=== PATIENT | female | born 1960 | race Caucasian/White ===

== ENCOUNTER → 2018-06-06 09:29 | Outpatient (CLI) | payer OTHER, SELFPAY ==
[2018-06-06 12:25] LABS: Basophil# 0.02 X10^3/uL; Basophil% 0.4 % (0-1); Eosinophil# 0.14 X10^3/uL; Eosinophils% 2.5 % (0-5); Hematocrit 42.7 % (37-47); Lymphocyte % 30.7 % (19-41); Mean Corp Hgb Conc 32.8 g/gl (32-36); Mean Corpuscular Hgb 28.6 pg (27.0-32.0); Mean Corpuscular Volume 87.1 fL (81-99); Mean Platelet Vol. 10.5 fl (6.2-12.0); Monocyte# 0.71 X10^3/uL; Monocyte% 12.8 % (0-10); Neutrophil # 2.96 X10^3/uL (2.7-7.7); Neutrophil % 53.6 % (47-70); Platelet Count 334 K/mm3 (150-450); RBC Distribution Width CV 12.9 % (11.6-14.6); RBC Distribution Width SD 40.1 fl (35.1-43.9); White Blood Count 5.5 K/mm3 (4.4-11.0)
[2018-06-06 12:39] LABS: POSITIVE COUNT NO; POSITIVE DIFFERENTIAL NO; POSITIVE MORPHOLOGY NO
[2018-06-06 13:04] LABS: ALB/GLOB Ratio 1.1 RATIO (0.9-2.4); AST(SGOT) 14 U/L (15-37); Alanine Aminotransfer ALT/SGPT 40 U/L (13-56); Albumin, Serum 3.9 g/dL (3.2-5.0); Alkaline Phosphatase 82 U/L (45-117); Anion Gap 9 (5-15); BUN 21 mg/dL (7-18); BUN/Creat Ratio 26.3 RATIO (10-20); Calcium,Total 8.9 mg/dL (8.5-10.1); Chloride 106 mmol/L (98-107); Cholesterol 168 mg/dL (200); EST Glomerular Filtration Rate 79 mL/min (>60); Est Glom Filt Rate - Afr Amer 95 mL/min (>60); Globulin 3.5 g/dL (2.2-4.2); Glucose 110 mg/dL (74-106); High Density Lipoprotein 63 mg/dL; Potassium 4.1 mmol/L (3.5-5.1); Protein, Total 7.4 g/dL (6.4-8.2); Sodium Level 141 mmol/L (136-145); T4 Total, Thyroxin 10.4 ug/dL (4.8-13.9); Thyroid Stim Hormone (TSH) 2.26 uIU/mL (0.358-3.74); Triglycerides 89 mg/dL; Very Low Density Lipoprotein 18 mg/dL (5-40)
== END ==
PROVIDERS: Family Provider Internal Medicine; PCP Internal Medicine; Referring Provider Internal Medicine; Visit Provider Internal Medicine
DX: I10 Essential (primary) hypertension (principal); E78.5 Hyperlipidemia, unspecified; E03.9 Hypothyroidism, unspecified
CPT/HCPCS: 36415; 80053; 80061; 84436; 84443; 85025

== ENCOUNTER → 2018-07-04 13:31 | Outpatient (CLI) | payer OTHER, SELFPAY ==
[2018-05-23 10:53] VITALS: BMI 30.4
--- NOTE | 2018-07-04 13:35 | BI_ITS ---
MAMMOGRAPHY - BILATERAL SCREENING REASON FOR EXAM: Female, 57 years old. Routine annual screening examination. PERTINENT HISTORY: Grandmother with breast cancer. Aunt with breast cancer. TECHNIQUE: Digital bilateral breast fredis (3D mammographic acquisition) in the CC and MLO projections. 2-D mediolateral oblique (MLO) and craniocaudad (CC) views of both breasts were obtained. CAD: Full Field Digital Mammography with Computer Added Detection was performed. COMPARISON: Comparison is made with prior study dated September 13, 2016 and August 03, 2014. FINDINGS: Breast Composition: The breasts are heterogeneously dense, which may obscure small masses. There are no dominant masses or suspicious calcifications. No other significant abnormalities are identified. There has been no significant change since the prior study. BI/SCREENING MAMM (CAD), BILAT IMPRESSION: Stable bilateral screening mammogram. Yearly follow-up mammogram recommended. (A) ASSESSMENT CATEGORY: BIRADS Category 1: Negative. A letter regarding these results will be sent to the patient by the facility within 30 days. Approximately 10% of breast cancers are not detected by mammography. A normal mammogram should not delay biopsy of a clinically suspicious abnormality. [id number] Electronically Signed: Jesus Villela MD at 15:05 EST Tel [phone], Service support ,
--- OUTSIDE RECORDS SUMMARY | 2018-08-29 12:56 | XMS RPT_ITS ---
:1960 Author Organization OH[facility] Care Team Providers Name Role Phone Ines Mulligan Attending Unavailable Harvey Mulliganongbe Referring Unavailable Ines Mulligan Attending Unavailable Harvey Mulliganongbe Referring Unavailable Oleghe, Efewongbe Primary Care Unavailable Oleghe, Efewongbe Attending Unavailable CHER YEN Primary Care Unavailable Tony, Rayo LAB ENGINEER-C Attending Unavailable Oleghe, Efewongbe Referring Unavailable TonyRayo LAB ENGINEER-C Attending Unavailable Tony, Rayo LAB ENGINEER-C Referring Unavailable Oleghe, Efewongbe Primary Care Unavailable Tony, Rayo LAB ENGINEER-C Attending Unavailable Oleghe, Efewongbe Primary Care Unavailable Tony, Rayo LAB ENGINEER-C Referring Unavailable PROBLEMS PROBLEMS DATE TYPE CONDITION / CODE ATTENDING STATUS SOURCE 07/09/2018 Unknown M25.512 - Pain in Tony, Rayo Active [place] left shoulder / [facility] M25.512(ICD-10) Hospital Repository 07/09/2018 Unknown M79.674 - Pain in Tony, Rayo Active [place] right toe(s) / [facility] M79.674(ICD-10) Hospital Repository 05/23/2018 Unknown I10 - Essential Oleghe, Active [place] (primary) [facility] hypertension / Hospital I10(ICD-10) Repository 05/23/2018 Unknown E78.5 - Oleghe, Active [place] Hyperlipidemia, [facility] unspecified / Hospital E78.5(ICD-10) Repository 05/23/2018 Unknown E03.9 - Oleghe, Active [place] Hypothyroidism, [facility] unspecified / Hospital E03.9(ICD-10) Repository 05/23/2018 Unknown Z12.31 - Encounter Oleghe, Active [place] for screening [facility] mammogram for Hospital malignant neoplasm Repository of breast / Z12.31(ICD-10) 05/23/2018 Unknown G47.10 - Oleghe, Active [place] Hypersomnia, [facility] unspecified / Hospital G47.10(ICD-10) Repository 05/23/2018 Unknown Z23 - Encounter Oleghe, Active [place] for immunization / [facility] Z23(ICD-10) Hospital Repository PROCEDURES PROCEDURES No Procedure Records FoundRESULTS RESULTS INTERNAL MEDICINE Observed: 07/11/2018 Status: F Source: [place] OFFICE VISIT 9:01 AM [facility] REPOSITORY [facility] [address] [place] [address] [place] [address] OFFICE VISIT Date of Service: 07/09/18 MR#: [id number] Acct: [id number] Name: SAQIB ANTOINE Rep #: [id number] : 1960 Provider: Rayo Tony NP Age/Sex: 57/F Location: [facility] Status: Signed Intake Vital Signs07/09/18 Body Mass Index (BMI) 30.4 07/09/18 Height 5 ft 5 in Intake Visit Reasons: gout in foot, and shoulder pain Chief Complaint: Rt foot pain, and left shoulder pain Is patient in pain?: Yes (left shoulder, worse with ROM) Pain scale (1-10): 3 Allergies wool Allergy (Severe, Verified 05/23/18 10:29) Hives codeine Allergy (Verified 02/22/14 11:30) Unknown Medications Albuterol Inhaler [Ventolin Hfa] 2 puff INHALATION Q4H PRN PRN 05/04/14 [History Confirmed 05/23/18] Estradiol [Estrace] 1 mg PO DAILY 05/04/14 [History Confirmed 05/04/14] Meclizine HCl [Antivert] 12.5 mg PO DAILY PRN PRN 05/04/14 [History Confirmed 05/23/18] Montelukast [Singulair] 10 mg PO DAILY 05/04/14 [History Confirmed 05/23/18] Omeprazole [Prilosec] 40 mg PO BID 05/04/14 [History Confirmed 05/23/18] atorvastatin 20 mg tablet 20 mg PO DAILY 05/23/18 [History Confirmed 05/23/18] duloxetine 60 mg capsule,delayed release 60 mg PO DAILY 05/23/18 [History Confirmed 05/23/18] fluticasone 100 mcg-vilanterol 25 mcg/dose powder for inhalation 1 inh INHALATION DAILY 05/23/18 [History Confirmed 05/23/18] fluticasone 50 mcg/actuation nasal spray,suspension 1 spray INTRANASAL DAILY 05/23/18 [History Confirmed 05/23/18] levothyroxine 125 mcg capsule 62.5 mcg PO DAILY cap 05/23/18 [History Confirmed 05/23/18] metoclopramide 10 mg tablet 10 mg PO DAILY PRN tab 05/23/18 [History Confirmed 05/23/18] tizanidine 4 mg tablet 2 mg PO Q8H tab 05/23/18 [History Confirmed 05/23/18] allopurinol 100 mg tablet 100 mg PO DAILY #30 tab 07/09/18 [Rx Confirmed 07/09/18] cetirizine 10 mg tablet 10 mg PO DAILY PRN #90 tab 07/09/18 [Rx Confirmed 07/09/18] naproxen sodium 550 mg tablet 550 mg PO BID PRN 07/09/18 [History Confirmed 07/09/18] prednisone 20 mg tablet 40 mg PO QDAY #10 tab 07/09/18 [Rx Confirmed 07/09/18] Post menopausal: Yes PFSH Medical History Depression (Chronic) History of vitamin D deficiency (Acute) GERD (gastroesophageal reflux disease) (Chronic) History of pneumonia (Acute) Hyperlipemia (Chronic) Hypertension (Chronic) Asthma (Chronic) Osteoarthritis (Chronic) Seasonal allergies (Chronic) Surgical History History of back surgery (Acute) History of cardiac radiofrequency ablation (Acute) History of hysterectomy (Acute) History of loop electrical excision procedure (LEEP) (Acute) History of orthopedic surgery (Acute) History of tubal ligation (Acute) Hx of fusion of cervical spine (Acute) Normal colonoscopy (Acute) S/P LASIK surgery of both eyes (Acute) Family History Mother Cancer cervical, ovarian Hyperlipemia Father Heart disease Myocardial infarction, Onset Age: 72 Hyperlipemia CVA (cerebral vascular accident) Diabetes Sister Alcoholism Social History Smoking Status: Never smoker alcohol intake: current alcohol intake frequency: a few times a month Alcohol type: beer substance use type: does not use what type of physical activity do you participate in: walking frequency: 1-2 times per week HPI HPI Chief Complaint: Rt foot pain, and left shoulder pain Details: SAQIB ANTOINE, is a 57 F who presents to the office today for complaints of right foot pain and left shoulder pain. The patient has a past medical history as listed above. The patient presents today with complaints of pain to the base of her right great toe. She states this pain has been going on for over 6 months intermittently. It will flareup become red, swollen and painful, is concerned for gout. Today it is the worst the pain has been. Naproxen helps for the pain, but she does not take routinely. She denies any other aggravating or alleviating factors. The patient has a history of a right rotator cuff tear, she presents today with ongoing left shoulder pain that she compares to the pain of her right rotator cuff tear. She states she has had mild pain in her left shoulder for years but over the last few weeks the pain has become more intense. She describes it as a constant ache that is made worse with movement and lifting. She does not remember a specific injury to this area. She has been taking naproxen and Tylenol for the pain that has been mildly effective. She denies any other aggravating or alleviating factors. Denies any numbness, tingling, or weakness to the affected extremity. The patient otherwise denies any fever, chills, nausea, vomiting, shortness of breath, chest pain or pressure, palpitations, orthopnea, lower extremity edema, syncope or presyncopal episodes. ROS Const Constitutional: No weight change, body ache, chills, fatigue, sleep problems, fever(s), change in appetite, snoring, weakness, frequent falls, headache(s) or excessive sweating Eyes Eyes: No change in vision, eye pain, light sensitivity or blurry vision ENT ENT: No headache(s), abnormal hearing, ear pain, tinnitus, nasal congestion, sore throat or neck pain Resp Respiratory: No snoring, cough, shortness of breath or wheezing Cardio Cardiology: No excessive sweating, chest pain at rest, chest pain with exertion, shortness of breath, dyspnea on exertion, palpitations, orthopnea or lightheadedness Gastro GI: No abdominal pain, change in bowel habits, constipation, diarrhea, vomiting, nausea/dyspepsia or cramping Genitourinary-Female: No burning urination, painful urination, urinary incontinence, urinary frequency, abnormal vaginal bleeding, pelvic pain or other Musc Musculoskeletal: Positive for joint pain (right foot), numbness (in left arm intermittant), tingling and other (left shoulder pain); no neck pain, abnormal walking, back pain or limited range of motion Skin Skin: No redness, dry skin, itching, lesions, wounds or rash Neuro Neurology: Positive for numbness (in left arm intermittant) and tingling; no weakness, frequent falls, headache(s), abnormal hearing, abnormal walking, abnormal speech, dizziness or memory loss Psych Psychiatric: No change in appetite, No memory loss, No anxiety, No depression, No Thoughts of harming yourself/Others Endo Endocrine: No fatigue, excessive sweating, cold intolerance, increased thirst/drinking, heat intolerance, flushing or increased hunger Aller/Imm Allergy/Immunologic: Positive for seasonal allergy symptoms; no wheezing, itchy eyes or hives John/Lymp Hematologic/Lymphatic: No easy bleeding, easy bruising or enlarged lymph nodes Exam Const General: cooperative, comfortable, no acute distress Nutritional Appearance: average body habitus, well nourished Orientation: alert, oriented x3 Limitations: mental status not altered Eyes General: appearance normal, both eyes and all related structures Resp Effort AND Inspection: normal respiratory effort, able to speak in complete sentences, normal respiratory pattern, symmetric chest movement, no audible wheezes, no cough Auscultation: Bilateral: Clear to Auscultation Cardio Palpation: normal PMI Rate: regular rate Heart Sounds: S1 normal, S2 normal, normal S1 and S2, no click, no gallops, no murmurs, no rubs Musc Other: Left shoulder tenderness over the anterior surface and limited range of motion due to pain, negative empty can, drop arm and rodriguez test Right foot first MTP joint erythema, edema, warmth and tenderness, suspicious for gout Skin General: no rashes or lesions noted, elasticity normal, turgor normal Lesions: no lesions Rashes: no rashes Neuro General: alert, awake, oriented x3, CN's II-XI intact bilaterally Speech: speech normal Gait: normal gait Motor: muscle tone normal throughout Extrem General: normal to inspection, normal gait, no edema, no pedal edema Psych Appearance: grossly normal Mental Status: mental status grossly normal Affect: normal affect Attitude: cooperative Thought Process: normal Assessment AND Plan Problems 1. Gout M10.9 2. Left shoulder pain M25.512 Plan Will obtain x-ray of right great toe of right foot and left shoulder. Will obtain uric acid level. as her symptoms are consistent wth gout. Will start patient on prednisone burst. Referral to physical therapy for shoulder pain. Patient to start allopurinol in 3 weeks as per her history she has had multiple flareups of her probable gout in the right great toe. Patient educated on medication side effects. Patient educated on dietary restrictions including red meat and alcohol. Patient educated on signs and symptoms that would warrant emergency medical care. Patient to f/u in 4-6 weeks or sooner if needed. This note was generated with Weblioation software. It may contain incorrect words, spelling, and punctuation that were not noted in checking the note before signing. Orders Orders: Referrals: Medications New: Plan Detail Follow Up 4-6 weeks or sooner if needed Coding Level of Care Code Off vis,est,level 3 Diagnoses Gout M10.9 Left shoulder pain M25.512 07/11/18 0901 <Electronically signed by Rayo JEFFERS> Date Rayo JEFFERS Cosigner Signature: Date (if applicable) CC: SHOULDER MIN 2 VIEWS Observed: 07/09/2018 Status: F Source: [place] 11:35 AM [facility] REPOSITORY [facility] Imaging Services [address] [place] [id number] Shoulder min 2 Views MR#: [id number] Acct: [id number] Name: SAQIB ANTOINE Rep #: [id number] : 1960 F 57 From: Rogelio Lombardo MD PCP: Ines Mulligan MD Status: REG CLI Study: Shoulder min 2 Views Date of Exam: 07/09/18 Exam# [id number] Ordering Dr: Rayo Tony STUDY: X-RAY - LEFT SHOULDER REASON FOR EXAM: Female, 57 years old. Pain TECHNIQUE: 4 view(s) of the shoulder. COMPARISON: None. FINDINGS: Normal glenohumeral articulation. Normal acromioclavicular joint. Normal acromion. Normal humeral head and visualized proximal humerus. The soft tissue structures are unremarkable. There is no demonstrated fracture. Normal visualized pulmonary apex. RAD/Shoulder min 2 Views IMPRESSION: Normal x-ray examination of the shoulder. Electronically Signed: Rogelio Lombardo MD at 17:55 EST , Service support , CC: Ines Mulligan MD; Rayo Tony NP Disc Pad Grinder: Signed TOE(S) MIN 2 VIEWS Observed: 07/09/2018 Status: F Source: [place] 11:35 AM [facility] REPOSITORY [facility] Imaging Services [address] [place] [address] Toe(s) Min 2 Views MR#: [id number] Acct: [id number] Name: SAQIB ANTOINE Rep #: [id number] : 1960 F 57 From: Billy Vidal PCP: Ines Mulligan MD Status: REG CLI Study: Toe(s) Min 2 Views Date of Exam: 07/09/18 Exam# [id number] Ordering Dr: Rayo Tony LAB ENGINEER-C STUDY: X-RAY RIGHT FOOT, FIRST TOE REASON FOR EXAM: Female, 57 years old. Pain TECHNIQUE: 3 view(s) of the toe were obtained. COMPARISON: None. FINDINGS: Normal visualized metatarsus. There is arthrosis of the metatarsophalangeal (M.T.P.) joint. Normal interphalangeal joints. Normal phalanges and interphalangeal joints. There is no demonstrated fracture. There is soft tissue swelling of the first digit. 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 There are NO fractures or malalignments. There is soft tissue swelling of the first digit. Electronically Signed: Billy Vidal MD at 0:26 EST , Service support , CC: Ines Mulligan MD; Rayo Tony NP Disc Pad Grinder: Signed URIC ACID Collected: 07/09/2018 Status: F Source: [place] 11:27 AM [facility] REPOSITORY TYPE CODE TESTS RESULT OUT OF RANGE REFERENCE UNITS LAB L501.1400 2.6-6.0 mg/dL Normal URIC 4.3 Result Comment: The drugs N-Acetylcysteine and Metamizole may falsely depress this assay. Performed By: #### L501.1400 #### [facility] [address] [facility] [place], [address] SCREENING MAMM (CAD), Observed: 07/04/2018 Status: F Source: [place] BIL 1:35 PM [facility] REPOSITORY [facility] Imaging Services [address] [place] [address] SCREENING MAMM (CAD), BILAT MR#: [id number] Acct: [id number] Name: SAQIB ANTOINE Rep #: [id number] : 1960 F 57 From: Jesus Villela MD PCP: Ines Mulligan MD Status: REG CLI Study: SCREENING MAMM (CAD), BIL Date of Exam: 07/04/18 Exam# [id number] Ordering Dr: Ines Mulligan MD MAMMOGRAPHY - BILATERAL SCREENING REASON FOR EXAM: Female, 57 years old. Routine annual screening examination. PERTINENT HISTORY: Grandmother with breast cancer. Aunt with breast cancer. TECHNIQUE: Digital bilateral breast fredis (3D mammographic acquisition) in the CC and MLO projections. 2-D mediolateral oblique (MLO) and craniocaudad (CC) views of both breasts were obtained. CAD: Full Field Digital Mammography with Computer Added Detection was performed. COMPARISON: Comparison is made with prior study dated September 13, 2016 and August 03, 2014. FINDINGS: Breast Composition: The breasts are heterogeneously dense, which may obscure small masses. There are no dominant masses or suspicious calcifications. No other significant abnormalities are identified. There has been no significant change since the prior study. BI/SCREENING MAMM (CAD), BILAT IMPRESSION: Stable bilateral screening mammogram. Yearly follow-up mammogram recommended. (A) ASSESSMENT CATEGORY: BIRADS Category 1: Negative. A letter regarding these results will be sent to the patient by the facility within 30 days. Approximately 10% of breast cancers are not detected by mammography. A normal mammogram should not delay biopsy of a clinically suspicious abnormality. [id number] Electronically Signed: Jesus Villela MD at 15:05 EST Tel [phone], Service support , CC: Ines Mulligan MD Disc Pad Grinder: Signed CBC W/DIFF, AUTOMATED Collected: 06/06/2018 Status: F Source: [place] 9:39 AM [facility] REPOSITORY TYPE CODE TESTS RESULT OUT OF RANGE REFERENCE UNITS LAB L100.1000 4.4-11.0 K/mm3 Normal WBC 5.5 LAB L100.1200 4.2-5.4 M/mm3 Normal RBC 4.90 LAB L100.1300 12.0-15.0 g/dl Normal HGB 14.0 LAB L100.1400 37-47 % Normal HCT 42.7 LAB L100.1500 81-99 fL Normal MCV 87.1 LAB L100.1600 27.0-32.0 pg Normal MCH 28.6 LAB L100.1700 32-36 g/gl Normal MCHC 32.8 LAB L100.1810 11.6-14.6 % Normal RDW CV 12.9 LAB L100.1820 35.1-43.9 fl Normal RDW SD 40.1 LAB L100.1900 150-450 K/mm3 Normal PLT 334 LAB L100.2000 6.2-12.0 fl Normal MPV 10.5 LAB L100.2100 47-70 % Normal NEUT% 53.6 LAB L100.2200 19-41 % Normal LY% 30.7 LAB L100.2300 0-10 % High MONO% 12.8 LAB L100.2400 0-5 % Normal EO% 2.5 LAB L100.2500 0-1 % Normal BASO% 0.4 LAB L100.2550 0.0-0.9 % Normal IM GRAN % 0.000 Result Comment: IG% - Immature Granulocytes (promyelocytes, myelocytes and metamyelocytes) > 1% indicates that a LEFT SHIFT is Present. LAB L100.2620 2.0-7.7 X10 3/uL Normal Absolute Neut 3.0 LAB L100.2720 0.83-4.51 X10 3/ul Normal Absolute Lymph 1.70 Performed By: #### L100.0100 #### [facility] [address] [place], [address] COMPREHENSIVE METABOLIC Collected: 06/06/2018 Status: F Source: [facility] 9:39 AM [facility] REPOSITORY Order Comment: Comments: Fasting Comments: Fasting Comments: Fasting TYPE CODE TESTS RESULT OUT OF RANGE REFERENCE UNITS LAB L501.0100 74-106 mg/dL High GLU 110 Result Comment: Fasting Glucose result from 100 to 125 mg/dL suggests IMPAIRED HOMEOSTASIS per A.D.A. criteria. Please note revised GLUCOSE reference range effective 2017. LAB L501.1000 7-18 mg/dL High BUN 21 LAB L501.1100 0.55-1.02 mg/dL Normal CREAT,SERUM 0.80 Result Comment: The validity of the calculated GFR AND GFRAA in patients over 70 years has not been determined. Clinical correlation is essential. LAB L501.1110 >60 mL/min Normal EST GFR 79 Result Comment: Non- GFR Calc LAB L501.1115 >60 mL/min Normal EST GFR - AA 95 Result Comment: GFR Calc LAB L501.1300 10-20 RATIO High BUN/CRE 26.3 LAB L501.1500 6.4-8.2 g/dL T Normal PROT 7.4 LAB L501.1800 3.2-5.0 g/dL Normal ALB 3.9 LAB L501.1950 2.2-4.2 g/dL Normal GLOB 3.5 LAB L501.2000 0.9-2.4 RATIO Normal A/G 1.1 LAB L501.2200 8.5-10.1 mg/dL CA Normal 8.9 LAB L501.4100 15-37 U/L Low AST 14 LAB L501.4305 45-117 U/L Normal ALK P 82 LAB L501.4405 13-56 U/L Normal ALT 40 LAB L501.4600 0.20-1.00 mg/dL T Normal BILI 0.40 LAB L501.5300 136-145 mmol/L NA Normal 141 LAB L501.5600 3.5-5.1 mmol/L K Normal 4.1 LAB L501.5900 98-107 mmol/L CL Normal 106 LAB L501.6100 21.0-32.0 mmol/L Normal CO2 26.0 LAB L501.6200 5-15 Normal GAP 9 Performed By: #### L500.4050, L500.4100, L501.9310, L501.9520 #### [facility] [address] [place], [address] LIPID PROFILE Collected: 06/06/2018 Status: F Source: [place] 9:39 AM [facility] REPOSITORY Order Comment: Comments: Fasting Comments: Fasting Comments: Fasting TYPE CODE TESTS RESULT OUT OF RANGE REFERENCE UNITS LAB L501.4900 200 mg/dL Normal CHOL 168 Result Comment: <200 mg/dL Desirable 200-240 mg/dL Borderline >240 mg/dL High Risk LAB L501.5000 mg/dL Normal TRIG 89 Result Comment: The drugs N-Acetylcysteine and Metamizole may falsely depress this assay. Serum Triglycerides Reference Interval Normal <150 mg/dL Borderline high 150 - 199 mg/dL High 200 - 499 mg/dL Very High > or = 500 mg/dL LAB L501.6400 mg/dL Normal HDL 63 Result Comment: The drugs N-Acetylcysteine and Metamizole may falsely depress this assay. Reference Range HDL <40 mg/dL Low HDL Cholesterol HDL >or= 60 mg/dL High HDL Cholesterol LAB L501.6500 0-130 mg/dL Normal LDL 87 LAB L501.6600 5-40 mg/dL Normal VLDL 18 Performed By: #### L500.4050, L500.4100, L501.9310, L501.9520 #### [facility] [address] [place], [address] T4 TOTAL, THYROXIN Collected: 06/06/2018 Status: F Source: [place] 9:39 AM [facility] REPOSITORY Order Comment: Comments: Fasting Comments: Fasting Comments: Fasting TYPE CODE TESTS RESULT OUT OF RANGE REFERENCE UNITS LAB L501.9310 4.8-13.9 ug/dL T4 Normal THYROXIN 10.4 Performed By: #### L500.4050, L500.4100, L501.9310, L501.9520 #### [facility] [address] [place], [address] THYROID STIM HORMONE Collected: 06/06/2018 Status: F Source: [place] ([facility]) 9:39 AM [facility] REPOSITORY Order Comment: Comments: Fasting Comments: Fasting Comments: Fasting TYPE CODE TESTS RESULT OUT OF RANGE REFERENCE UNITS LAB L501.9520 0.358-3.74 uIU/mL Normal TSH 2.26 Performed By: #### L500.4050, L500.4100, L501.9310, L501.9520 #### [place] [facility] [address] [place], [address] INTERNAL MEDICINE Observed: 05/27/2018 Status: F Source: [place] OFFICE VISIT 8:13 AM [facility] REPOSITORY [facility] [address] [place] [address] [place] [address] OFFICE VISIT Date of Service: 05/23/18 MR#: [id number] Acct: [id number] Name: SAQIB ANTOINE Rep #: [id number] : 1960 Provider: Ines Mulligan MD Age/Sex: 57/F Location: [facility] Status: Signed Intake Vital Signs05/23/18 Height 5 ft 5 in Intake Visit Reasons: EST PCP Chief Complaint: establish care Is patient in pain?: No Allergies wool Allergy (Severe, Verified 05/23/18 10:29) Hives codeine Allergy (Verified 02/22/14 11:30) Unknown Medications Albuterol Inhaler [Ventolin Hfa] 2 puff INHALATION Q4H PRN PRN 05/04/14 [History Confirmed 05/23/18] Estradiol [Estrace] 1 mg PO DAILY 05/04/14 [History Confirmed 05/04/14] Meclizine HCl [Antivert] 12.5 mg PO DAILY PRN PRN 05/04/14 [History Confirmed 05/23/18] Montelukast [Singulair] 10 mg PO DAILY 05/04/14 [History Confirmed 05/23/18] Omeprazole [Prilosec] 40 mg PO BID 05/04/14 [History Confirmed 05/23/18] atorvastatin 20 mg tablet 20 mg PO DAILY 05/23/18 [History Confirmed 05/23/18] duloxetine 60 mg capsule,delayed release 60 mg PO DAILY 05/23/18 [History Confirmed 05/23/18] fluticasone 100 mcg-vilanterol 25 mcg/dose powder for inhalation 1 inh INHALATION DAILY 05/23/18 [History Confirmed 05/23/18] fluticasone 50 mcg/actuation nasal spray,suspension 1 spray INTRANASAL DAILY 05/23/18 [History Confirmed 05/23/18] levothyroxine 125 mcg capsule 62.5 mcg PO DAILY cap 05/23/18 [History Confirmed 05/23/18] metoclopramide 10 mg tablet 10 mg PO DAILY PRN tab 05/23/18 [History Confirmed 05/23/18] tizanidine 4 mg tablet 2 mg PO Q8H tab 05/23/18 [History Confirmed 05/23/18] Post menopausal: Yes PFSH Medical History Depression (Chronic) History of vitamin D deficiency (Acute) GERD (gastroesophageal reflux disease) (Chronic) History of pneumonia (Acute) Hyperlipemia (Chronic) Hypertension (Chronic) Asthma (Chronic) Osteoarthritis (Chronic) Seasonal allergies (Chronic) Surgical History History of back surgery (Acute) History of cardiac radiofrequency ablation (Acute) History of hysterectomy (Acute) History of loop electrical excision procedure (LEEP) (Acute) History of orthopedic surgery (Acute) History of tubal ligation (Acute) Hx of fusion of cervical spine (Acute) Normal colonoscopy (Acute) S/P LASIK surgery of both eyes (Acute) Family History Mother Cancer cervical, ovarian Hyperlipemia Father Heart disease Myocardial infarction, Onset Age: 72 Hyperlipemia CVA (cerebral vascular accident) Diabetes Sister Alcoholism Social History Smoking Status: Never smoker alcohol intake: current alcohol intake frequency: a few times a month Alcohol type: beer substance use type: does not use what type of physical activity do you participate in: walking frequency: 1-2 times per week HPI HPI Chief Complaint: establish care Details: SAQIB ANTOINE, is a 57yo F who presents to the office today establish care. She has past medical history as stated above. Most of her chronic medical conditions are stable. She reports a history of hypertension which for the most part is lifestyle controlled. Appears elevated in office today, she states that during her doctor's visits, pressure elevated. She does not check it routinely at home. She however is concerned about hypersomnolence and increased snoring which has been ongoing for several years. She has been told of the possibility of sleep apnea but has not had a sleep study done. There is a positive history of fatigue. ROS Const Constitutional: No body ache, chills, headache(s), weakness or fever(s) Eyes Eyes: No blurry vision, change in vision, eye pain or discharge ENT ENT: No headache(s), abnormal hearing, ear pain, ear pressure, tinnitus, dizziness/vertigo or balance problems Resp Respiratory: No cough, shortness of breath or wheezing Cardio Cardiology: No chest pain at rest, shortness of breath, dyspnea on exertion or palpitations Gastro GI: No abdominal pain or bloating Musc Musculoskeletal: Positive for back pain and joint pain; no abnormal walking Neuro Neurology: No headache(s), weakness, abnormal hearing, behavioral changes or abnormal walking Psych Psychiatric: No anxiety, No behavioral changes Endo Endocrine: No change in body appearance or cold intolerance Aller/Imm Allergy/Immunologic: No wheezing John/Lymp Hematologic/Lymphatic: No easy bleeding or enlarged lymph nodes Exam Const General: cooperative, no acute distress Orientation: alert, awake, oriented x3 HENMT Head: atraumatic, normocephalic, normal to inspection Ears: hearing grossly normal bilaterally Resp Effort AND Inspection: normal respiratory effort, able to speak in complete sentences Auscultation: Bilateral: Clear to Auscultation Cardio Rate: regular rate Rhythm: regular rhythm Heart Sounds: S1 normal, S2 normal GI Palpation: soft, no hepatosplenomegaly Neuro General: alert, awake, oriented x3, moves all extremities, CN's II-XI intact bilaterally Extrem General: no clubbing, cyanosis or edema Psych Appearance: grossly normal Mental Status: mental status grossly normal Mood: congruent mood Affect: normal affect Office Meds Flucelvax Quad 7460-4410 (PF) Performing Provider: Ines Mulligan MD Administered by: Lizzy Merida on 05/23/18 11:40 Dose Route Admin Location Lot Number Expiration Date NDC [employer] Supervisor 60 mcg IM right deltoid [id number] 02/01/19 [id number] [place]. Assessment AND Plan 1. Hypertension I10 Plan Mildly elevated during this visit. Patient however reports elevated blood pressure readings during doctor's appointments. She does however state that she does not check her blood pressures at home. Advised to keep a blood pressure log. Lifestyle and dietary modifications discussed. Follow-up with log in 3 months. Orders Orders: 2. Hypersomnolence G47.10 Plan Ongoing for several years and said to be worsening. Also reports loud snoring. Sleep study ordered. Will follow. Orders Orders: 3. Hyperlipemia E78.5 Plan Currently on Lipitor. She reports compliance. Lipid profile ordered. Follow-up with results. Orders Orders: 4. Healthcare maintenance Z00.00 Plan Flu shot given. Mammogram ordered. Last bone density scan was about 4 years ago and this was within normal. Unsure if she if due for colonoscopy, she was asked to call her GI's office. This note was generated with [employer] dictation software. It may contain incorrect words, spelling, and punctuation that were not noted in checking the note before signing. Plan Detail Other Orders Orders: Other Medications Discontinued: Flucelvax Quad 3024-6991 (PF) (flu vac qs 2018(4 yr60 mcg (0.5 mL) IM ONCE 1 mL 0RF NS Z23 up)CD(PF)) Discontinued Reason: Office Medicat ion has been Documented as given Coding Level of Care Code Off vis,new,level 4 Diagnoses Hypertension I10 Hypersomnolence G47.10 Hyperlipemia E78.5 Healthcare maintenance Z00.00 05/27/18 0813 <Electronically signed by Ines Mulligan MD> Date Ines Mulligan MD Cosigner Signature: Date (if applicable) CC: ALLERGIES ALLERGIES DATE TYPE / CODE NAME / CODE REACTION SEVERITY SOURCE 05/23/2018 Drug wool/[id number] Hives [place] [facility] Allergy/4160 102(RXNORM) Hospital [address]37(SNOMED Repository CT) 02/22/2014 Drug codeine/F006 Unknown Unknown [place] [facility] Allergy/4160 851292(RXNOR Hospital 92120(SNOMED M) Repository CT) ENCOUNTERS ENCOUNTERS ADMIT/DISCHARGE ACCOUNT ADMITTING ENCOUNTER LOCATION SOURCE NUMBER CLASS 07/22/2018 [id number] Ambulatory [place] Adithya 2 [facility] ing:PT Repository 07/09/2018 [id number] [facility] [place] [facility] ing:LAB Repository 07/09/2018/ [id number] Ambulatory BMSBuilding:B Adithya 8 8 MS.[facility] Repository 07/04/2018 [id number] Ambulatory Adith[place] 3 [facility] ing:OPBI Repository 06/06/2018 [id number] Ambulatory Adith[place] 7 [facility] ing:MTLAB Repository 05/23/2018/ [id number] Ambulatory BMSBuilding:B Adithya 8 9 MS.[facility] Repository PAYERS PAYERS ENCOUNTER GUARANTOR PAYER SUBSCRIBER SOURCE 07/22/2018 SAQIB L Primary SAQIB L Adithya [id number] E [facility] [employer]: [facility] TODD Number: [id number] [place] [id number] Repository [address]Wri: 330) Date:2126-83-06FW [phone] () [id number], [place] [address]VT: 07/22/2018 Secondary NOT GIVENUNK [place] Insurance:SELF PAY [facility] Number: Effective Repository Date:2018-07-10 07/09/2018 SAQIB L Primary SAQIB L Adithya [id number] E Insurance:CIGNAPolicy STOTTSDOB: Community TODD Number: [id number] [place], [place] [id number] Repository [address]Wlv: (330) Date:3594-03-67UZ [phone] (HP) 926202IQSUPWSANTG, [place] [address]IA: 07/09/2018 Secondary NOT GIVENUNK Adithya Insurance:SELF PAY [facility] Number: Effective Repository Date:2018-07-09 07/09/2018 SAQIB L Primary SAQIB L [place] [id number] E Insurance:CIGNAPolicy STOTTSDOB: Community TODD Number: [id number] [place], [place] [id number] Repository [address]Enw: (330) Date:9078-42-32WL [phone] () [id number], [place] [address]CZ: 07/09/2018 Secondary NOT GIVENUNK [place] Insurance:SELF PAY [facility] Number: Effective Repository Date:2018-07-07 07/04/2018 SAQIB L Primary SAQIB L Adithya [id number] E Insurance:CIGNAPolicy STOTTSDOB: Community TODD Number: [id number] [place] [id number] Repository [address]Zqc: (330) Date:7780-05-98NG [phone] () [id number], [place] [address]WQ: 07/04/2018 Secondary NOT GIVENUNK [place] Insurance:SELF PAY [facility] Number: Effective Repository Date:2018-05-23 06/06/2018 SAQIB L Primary SAQIB L [place] [id number] E Insurance:CIGNAPolicy STOTTSDOB: Community TODD Number: [id number] [place], [place] [id number] Repository [address]Vem: (330) Date:1626-09-81FJ [phone] (HP) 704[address]QVJATFHEISI, [place] [address]AG: 06/06/2018 Secondary NOT GIVENUNK [place] Insurance:SELF PAY [facility] Number: Effective Repository Date:2018-06-06 05/23/2018 SAQIB [place] Primary SAQIB [place] [id number] E Insurance:CIGNAPoljohnnyy NANCYSDOB: Community TODD Number: [id number] [place], [place] [id number] Repository [address]Lww: 330) Date:0487-41-70UQ [phone] () [id number] [place] [address]UO: 05/23/2018 Secondary NOT GIVENUNK [place] Insurance:SELF PAY [facility] Number: Effective Repository Date:2018-05-23
== END ==
PROVIDERS: PCP Internal Medicine; Visit Provider Internal Medicine
DX: Z12.31 Encounter for screening mammogram for malignant neoplasm of breast (principal)
CPT/HCPCS: 77063; 77067

== ENCOUNTER → 2018-07-09 11:21 | Outpatient (CLI) | payer OTHER, SELFPAY ==
[2018-07-09 10:16] VITALS: BMI 30.4
--- NOTE | 2018-07-09 11:35 | RAD_ITS ---
STUDY: X-RAY RIGHT FOOT, FIRST TOE REASON FOR EXAM: Female, 57 years old. Pain TECHNIQUE: 3 view(s) of the toe were obtained. COMPARISON: None. FINDINGS: Normal visualized metatarsus. There is arthrosis of the metatarsophalangeal (M.T.P.) joint. Normal interphalangeal joints. Normal phalanges and interphalangeal joints. There is no demonstrated fracture. There is soft tissue swelling of the first digit. 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 There are NO fractures or malalignments. There is soft tissue swelling of the first digit. Electronically Signed: Billy Vidal MD at 0:26 EST , Service support ,
--- NOTE | 2018-07-09 11:36 | RAD_ITS ---
STUDY: X-RAY - LEFT SHOULDER REASON FOR EXAM: Female, 57 years old. Pain TECHNIQUE: 4 view(s) of the shoulder. COMPARISON: None. FINDINGS: Normal glenohumeral articulation. Normal acromioclavicular joint. Normal acromion. Normal humeral head and visualized proximal humerus. The soft tissue structures are unremarkable. There is no demonstrated fracture. Normal visualized pulmonary apex. RAD/Shoulder min 2 Views IMPRESSION: Normal x-ray examination of the shoulder. Electronically Signed: Rogelio Lombardo MD at 17:55 EST , Service support ,
[2018-07-09 12:09] LABS: Uric Acid 4.3 mg/dL (2.6-6.0)
== END ==
PROVIDERS: Family Provider Internal Medicine; PCP Internal Medicine; Referring Provider Nurse Practitioner Family; Visit Provider Nurse Practitioner Family
DX: M25.512 Pain in left shoulder (principal); M79.674 Pain in right toe(s)
CPT/HCPCS: 36415; 73030; 73660; 84550

== ENCOUNTER 2019-01-26 18:24 | Emergency (ER) | payer SELFPAY ==
[2019-01-09 10:19] VITALS: BMI 31.2
[2019-01-26 18:25] VITALS: BP 145/84; PULSE 80; RESP 18; TEMP 36.4; O2SAT 100; BMI 29.0
[2019-01-26] MEDS: Ibuprofen 400 MG Tablet 800 MG PO (18:57)
--- NOTE | 2019-01-26 19:07 | RAD_ITS ---
STUDY: X-RAY - CERVICAL SPINE REASON FOR EXAM: Female, 58 years old. Pain. TECHNIQUE: 3 view(s) of the cervical spine were obtained. COMPARISON: June 10, 2017 FINDINGS: Normal anterior atlantoaxial articulation. Normal odontoid process. There is stable straightening of the normal cervical lordosis. There is evidence of prior anterior fusion of C5-C6 that is stable. There is multi-level endplate spondylosis. Normal disc space heights. There is multi-level osseous foraminal stenosis. The soft tissue structures are unremarkable. RAD/Cerv Spine 2 or 3 Views IMPRESSION: Stable examination demonstrating degenerative changes and evidence of prior anterior fusion of C5-C6. Electronically Signed: Ethel Lombardi MD at 19:43 EDT Tel , Service support ,
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
== END 2019-01-26 20:31 | disposition home or self-care (01) ==
PROVIDERS: Emergency Provider Emergency Medicine; Family Provider Internal Medicine; PCP Internal Medicine
DX: S16.1XXA Strain of muscle, fascia and tendon at neck level, initial encounter (principal); S80.12XA Contusion of left lower leg, initial encounter; V43.52XA Car driver injured in collision with other type car in traffic accident, initial encounter; Y93.9 Activity, unspecified; Y92.9 Unspecified place or not applicable; I10 Essential (primary) hypertension; E78.00 Pure hypercholesterolemia, unspecified; Z79.899 Other long term (current) drug therapy
CPT/HCPCS: 72040; 73590; 99284

== ENCOUNTER → 2020-07-14 | Outpatient (CLI) | payer BC, SELFPAY ==
[2020-07-14 13:05] VITALS: BMI 30.7
== END | disposition home or self-care (01) ==
LOC: LABSPEC 15:28
PROVIDERS: PCP Internal Medicine; Visit Provider Physician Assistant
DX: R68.89 Other general symptoms and signs (principal)
CPT/HCPCS: 87635; U0003

== ENCOUNTER → 2021-06-12 15:28 | Outpatient (CLI) | payer BC, SELFPAY ==
--- NOTE | 2021-06-12 15:30 | RAD_ITS ---
STUDY: X-RAY - PELVIS AND RIGHT HIP REASON FOR EXAM: Female, 60 years old. WORSENING PAIN, NKI, HX BACK SURGERY TECHNIQUE: XR Hip Unilateral with Pelvis when performed; 2-3 Views COMPARISON: 04/20/2016 FINDINGS: There is a non-specific bowel gas pattern. There are multiple calcified phleboliths. There is chronic deformity at the lateral aspect of the left iliac crest which may be postsurgical or posttraumatic in nature. Normal bilateral iliac wings, sacroiliac joints and visualized sacrum. Normal bilateral superior and inferior pubic rami. Normal pubic symphysis. Normal bilateral ischial tuberosities. Normal visualized femoral head. Normal acetabulum. Normal hip joint. RAD/HIP, UNI W/ Pelvis 2-3 Views IMPRESSION: There are no acute findings. Electronically Signed: Chad Panda MD at 15:52 EST , Service support ,
--- NOTE | 2021-06-12 15:31 | RAD_ITS ---
STUDY: X-RAY - LUMBAR SPINE REASON FOR EXAM: Female, 60 years old. Back pain LUMBAR RADICULOPATHY TECHNIQUE: XR Spine Lumbar Min 4 Views COMPARISON: 04/30/2017 FINDINGS: Normal lumbar lordosis. There is a metal sideplate transfixing the L2-3. There are cortical screws holding the plate in place. There is a levoscoliosis of the lumbar spine. There is a normal alignment of the vertebrae. Disc spacer at L2-3. There is multilevel endplate spondylosis of the lumbar vertebrae. There is multi-level degenerative disc disease with multi-level disc space narrowing. There are atherosclerotic vascular calcifications. The soft tissue structures are unremarkable. RAD/L/S Spine Min 4 Views IMPRESSION: Degenerative changes of the spine, as detailed above. Electronically Signed: Chad Panda MD at 15:50 EST , Service support ,
== END ==
PROVIDERS: PCP Family Medicine; Referring Provider Family Medicine; Visit Provider Family Medicine
DX: M25.551 Pain in right hip (principal); G89.29 Other chronic pain; M54.16 Radiculopathy, lumbar region
CPT/HCPCS: 72110; 73502

== ENCOUNTER → 2021-12-12 | Outpatient (CLI) | payer BC, SELFPAY ==
--- NOTE | 2021-12-12 14:00 | BI_ITS ---
MAMMOGRAPHY - BILATERAL SCREENING REASON FOR EXAM: Female, 61 years old. Routine annual screening examination. PERTINENT HISTORY: Sister with breast cancer. Aunt with breast cancer. Grandmother with breast cancer. TECHNIQUE: Digital bilateral breast jose manuel (3D mammographic acquisition) in the CC and MLO projections. 2-D mediolateral oblique (MLO) and craniocaudad (CC) views of both breasts were obtained. CAD: Full Field Digital Mammography with Computer Added Detection was performed. COMPARISON: Comparison is made with prior study of 07/04/2018 and 09/13/2016. FINDINGS: Breast Composition: The breasts are heterogeneously dense, which may obscure small masses. There are no dominant masses or suspicious calcifications. No other significant abnormalities are identified. There has been no significant change since the prior study. BI/SCRN MAMM (CAD)W/JOSE MANUEL BILAT IMPRESSION: Stable bilateral screening mammogram. Yearly follow-up mammogram recommended. (A) ASSESSMENT CATEGORY: BIRADS Category 1: Negative. A letter regarding these results will be sent to the patient by the facility within 30 days. Approximately 10% of breast cancers are not detected by mammography. A normal mammogram should not delay biopsy of a clinically suspicious abnormality. [id number] Electronically Signed: Jesus Villela MD at 14:39 EDT ,
[2021-12-12 17:04] LABS: Hematocrit 39.7 % (37-47); Hemoglobin 12.3 g/dL (12.0-15.0); Mean Corpuscular Hgb 25.6 pg (27.0-32.0); Mean Corpuscular Volume 82.7 fL (81-99); Mean Platelet Vol. 9.5 fl (6.2-12.0); Platelet Count 402 K/mm3 (150-450); RBC Distribution Width CV 13.7 % (11.6-14.6); RBC Distribution Width SD 41.1 fl (35.1-43.9); White Blood Count 6.7 K/mm3 (4.4-11.0)
[2021-12-12 17:36] LABS: Hemoglobin A1c 6.1 % (3.8-5.6)
[2021-12-12 17:51] LABS: Anion Gap 7 (5-15); BUN 16 mg/dL (7-18); BUN/Creat Ratio 23.4 RATIO (10-20); Calcium,Total 8.6 mg/dL (8.5-10.1); Chloride 105 mmol/L (98-107); Cholesterol 112 mg/dL (200); Creatinine, Serum 0.68 mg/dL (0.55-1.02); EST Glomerular Filtration Rate 93 mL/min (>60); Est Glom Filt Rate - Afr Amer 113 mL/min (>60); Glucose 106 mg/dL (74-106); High Density Lipoprotein 53 mg/dL; Potassium 3.7 mmol/L (3.5-5.1); Sodium Level 140 mmol/L (136-145); Thyroid Stim Hormone (TSH) 2.05 uIU/mL (0.358-3.74); Triglycerides 38 mg/dL; Very Low Density Lipoprotein 8 mg/dL (5-40)
== END | disposition home or self-care (01) ==
PROVIDERS: PCP Nurse Practitioner Family; Visit Provider Nurse Practitioner Family
DX: Z12.31 Encounter for screening mammogram for malignant neoplasm of breast (principal); R73.03 Prediabetes; E78.5 Hyperlipidemia, unspecified; I10 Essential (primary) hypertension
CPT/HCPCS: 36415; 77063; 77067; 80048; 80061; 83036; 84443; 85027

== ENCOUNTER → 2021-12-21 | Outpatient (CLI) | payer BC, SELFPAY ==
--- NOTE | 2021-12-21 14:58 | US_ITS ---
STUDY: ULTRASOUND BREAST - RIGHT REASON FOR EXAM: Female, 61 years old. Abnormal screening mammogram. TECHNIQUE: Axial and longitudinal images of the RIGHT breast were performed with a high resolution ultrasound transducer. # OF IMAGES: 54 COMPARISON: Comparison is made with prior mammogram dated 12/12/2021. FINDINGS: RIGHT Breast: The lateral half of the right breast was examined by ultrasound. There is a heterogeneously dense fibroglandular tissue. No sonographic abnormality is seen. US/Breast Limited Unilateral IMPRESSION: No sonographic abnormality is seen. Additional mammographic views including compression spot views and 90 degree lateral view right breast will be obtained. ASSESSMENT CATEGORY: BIRADS Category 0: Incomplete. Need additional imaging evaluation. A letter regarding these results will be sent to the patient by the facility within 30 days. Electronically Signed: Jesus Villela MD at 9:03 EDT ,
--- NOTE | 2021-12-21 15:17 | BI_ITS ---
MAMMOGRAPHY - UNILATERAL DIAGNOSTIC: RIGHT BREAST REASON FOR EXAM: Female, 61 years old. Abnormal screening mammogram. PERTINENT HISTORY: Sister with breast cancer. Grandmother with breast cancer. Aunt with breast cancer. TECHNIQUE: 90 degree lateral and compression spot views of the right breast were obtained. CAD: Full Field Digital Mammography with Computer Added Detection was performed. COMPARISON: Comparison is made with prior study 12/12/2021. FINDINGS: Breast Composition: The breasts are heterogeneously dense, which may obscure small masses. There are no dominant masses or suspicious calcifications. No other significant abnormalities are identified. BI/DIAG MAMM W/CAD, UNILAT IMPRESSION: Negative unilateral diagnostic mammogram. Yearly followup mammogram recommended. (A) ASSESSMENT CATEGORY: BIRADS Category 1: Negative. A letter regarding these results will be sent to the patient by the facility within 30 days. Approximately 10% of breast cancers are not detected by mammography. A normal mammogram should not delay biopsy of a clinically suspicious abnormality. Electronically Signed: Jesus Villela MD at 8:17 EDT ,
== END | disposition home or self-care (01) ==
PROVIDERS: PCP Nurse Practitioner Family; Visit Provider Nurse Practitioner Family
DX: N63.10 Unspecified lump in the right breast, unspecified quadrant (principal)
CPT/HCPCS: 76642; 77065

== ENCOUNTER → 2022-03-28 | Outpatient (CLI) | payer BC, SELFPAY ==
--- NOTE | 2022-03-28 15:01 | RAD_ITS ---
STUDY: X-RAY - RIGHT FOOT CLINICAL: Female, 61 years old. right foot pain TECHNIQUE: 3 view(s) of the foot. COMPARISON: None. FINDINGS: Normal talus, calcaneus, and tarsal bones. Normal visualized subtalar, talonavicular, calcaneocuboid, tarsal and tarsometatarsal articulations. Normal metatarsi. There is degenerative arthrosis of the metatarsophalangeal joint of the hallux . Normal tibial and fibular sesamoid bones. Normal interphalangeal joint of the great toe. Normal phalanges of the great toe. Normal second through fifth metatarsophalangeal joints. Normal interphalangeal joints and phalanges of the lesser toes. The soft tissue structures are unremarkable. RAD/Foot min 3 Views IMPRESSION: Moderate first metatarsophalangeal joint arthrosis. Electronically Signed: Amaury Araujo MD at 17:08 EDT ,
[2022-03-28 15:34] LABS: Erythrocyte Sedimentation Rate 20 mm/hr (0-30)
[2022-03-28 15:52] LABS: CRP < 2.90 mg/L (0.0-3.0); Rheumatoid Factor < 10.0 IU/mL (<15); Uric Acid 4.7 mg/dL (2.6-6.0)
[2022-03-30 16:23] LABS: ANTINUCLEAR ANTIBODIES DIRECT Negative (Negative)
[2022-04-05 11:56] LABS: CCP IgG Antibodies 4 units (0-19)
== END | disposition home or self-care (01) ==
PROVIDERS: PCP Nurse Practitioner Family; Referring Provider Nurse Practitioner Family; Visit Provider Nurse Practitioner Family
DX: M19.071 Primary osteoarthritis, right ankle and foot (principal); M79.671 Pain in right foot; R07.9 Chest pain, unspecified
CPT/HCPCS: 36415; 73630; 84550; 85652; 86038; 86140; 86200; 86225; 86235; 86431

== ENCOUNTER → 2022-12-12 | Outpatient (CLI) | payer BC, SELFPAY ==
[2022-12-12 12:21] LABS: Absolute Lymphocyte Count 1.51 X10^3/uL (0.83-4.51); Absolute Neutrophil Count 10.9 X10^3/uL (2.0-7.7); Basophil# 0.05 X10^3/uL; Basophil% 0.4 % (0-1); Eosinophils% 0.7 % (0-5); Hematocrit 37.9 % (37-47); Hemoglobin 11.4 g/dL (12.0-15.0); Lymphocyte # 1.51 X10^3/ul (0.83-4.51); Lymphocyte % 11.1 % (19-41); Mean Corp Hgb Conc 30.1 g/dL (32-36); Mean Corpuscular Hgb 22.1 pg (27.0-32.0); Mean Corpuscular Volume 73.4 fL (81-99); Mean Platelet Vol. 9.6 fl (6.2-12.0); Monocyte% 7.3 % (0-10); NRBC Flagged by Analyzer 0 % (0-5); Neutrophil # 10.91 X10^3/uL (2.7-7.7); Neutrophil % 80.2 % (47-70); Platelet Count 507 K/mm3 (150-450); RBC Distribution Width CV 16.7 % (11.6-14.6); Red Blood Count 5.16 M/mm3 (4.2-5.4); White Blood Count 13.6 K/mm3 (4.4-11.0)
[2022-12-12 12:53] LABS: Ferritin 5 ng/mL (8-252); Iron 26 ug/dL (50-170); Iron Binding Capacity,Total 506 ug/dL (250-450); PERCENT IRON SATURATION 5.1 % (15.0-55.0)
[2022-12-12 12:55] LABS: Vitamin B12 489 pg/mL (211-911); Vitamin D,25 Hydroxy 27.9 ng/mL
== END | disposition home or self-care (01) ==
PROVIDERS: PCP Nurse Practitioner Family; Referring Provider Nurse Practitioner Family; Visit Provider Nurse Practitioner Family
DX: D64.9 Anemia, unspecified (principal); E56.9 Vitamin deficiency, unspecified
CPT/HCPCS: 36415; 82306; 82607; 82728; 83540; 83550; 85025

== ENCOUNTER → 2022-12-18 | Outpatient (CLI) | payer BC, SELFPAY ==
[2022-12-25 21:39] LABS: HPV Reflexed? NOT INDICATED
== END | disposition home or self-care (01) ==
LOC: LABSPEC 15:07
PROVIDERS: PCP Nurse Practitioner Family; Referring Provider Nurse Practitioner Women's Health; Visit Provider Nurse Practitioner Women's Health
DX: Z87.42 Personal history of other diseases of the female genital tract (principal)
CPT/HCPCS: 88175; G0145

== ENCOUNTER → 2022-12-27 | Outpatient (CLI) | payer BC, SELFPAY ==
--- NOTE | 2022-12-27 14:42 | BI_ITS ---
MAMMOGRAPHY - BILATERAL SCREENING REASON FOR EXAM: Female, 62 years old. Routine annual screening examination. PERTINENT HISTORY: Sister with breast cancer. Grandmother with breast cancer. Aunt with breast cancer. TECHNIQUE: Digital bilateral breast jose manuel (3D mammographic acquisition) in the CC and MLO projections. 2-D mediolateral oblique (MLO) and craniocaudad (CC) views of both breasts were obtained. CAD: Full Field Digital Mammography with Computer Added Detection was performed. COMPARISON: Diagnostic right breast mammogram from 12/21/2021. Screening mammogram from 12/12/2021, 07/04/2018. FINDINGS: Breast Composition: The breasts are heterogeneously dense, which may obscure small masses. There are no dominant masses or suspicious calcifications. No other significant abnormalities are identified. There has been no significant change since the prior study. BI/SCRN MAMM (CAD)W/JOSE MANUEL BILAT IMPRESSION: Stable bilateral screening mammogram. Yearly follow-up mammogram recommended. (A) ASSESSMENT CATEGORY: BIRADS Category 1: Negative. A letter regarding these results will be sent to the patient by the facility within 30 days. Approximately 10% of breast cancers are not detected by mammography. A normal mammogram should not delay biopsy of a clinically suspicious abnormality. Electronically Signed: Marcos Johnston DO at 14:13 EDT ,
== END | disposition home or self-care (01) ==
LOC: OPBI 14:40
PROVIDERS: PCP Nurse Practitioner Family; Referring Provider Nurse Practitioner Family; Visit Provider Nurse Practitioner Family
DX: Z12.31 Encounter for screening mammogram for malignant neoplasm of breast (principal); Z80.3 Family history of malignant neoplasm of breast
CPT/HCPCS: 77063; 77067

== ENCOUNTER → 2023-01-02 | Outpatient (CLI) | payer BC, SELFPAY ==
[2023-01-02 10:23] LABS: Absolute Lymphocyte Count 1.44 X10^3/uL (0.83-4.51); Absolute Neutrophil Count 4.6 X10^3/uL (2.0-7.7); Basophil# 0.04 X10^3/uL; Basophil% 0.6 % (0-1); Eosinophil# 0.24 X10^3/uL; Eosinophils% 3.3 % (0-5); Hematocrit 38.6 % (37-47); Hemoglobin 11.9 g/dL (12.0-15.0); Lymphocyte # 1.44 X10^3/ul (0.83-4.51); Lymphocyte % 19.9 % (19-41); Mean Corp Hgb Conc 30.8 g/dL (32-36); Mean Corpuscular Hgb 23.1 pg (27.0-32.0); Mean Platelet Vol. 9.2 fl (6.2-12.0); Monocyte# 0.92 X10^3/uL; Monocyte% 12.7 % (0-10); NRBC Flagged by Analyzer 0 % (0-5); Neutrophil # 4.57 X10^3/uL (2.7-7.7); Neutrophil % 63.2 % (47-70); Platelet Count 407 K/mm3 (150-450); RBC Distribution Width CV 18.9 % (11.6-14.6); RBC Distribution Width SD 50.5 fl (35.1-43.9); Red Blood Count 5.15 M/mm3 (4.2-5.4); White Blood Count 7.2 K/mm3 (4.4-11.0)
[2023-01-02 18:19] LABS: Xtra Tube EP Lab EXTRA TUBE
== END | disposition home or self-care (01) ==
LOC: PAVLAB 10:09
PROVIDERS: PCP Nurse Practitioner Family; Referring Provider Nurse Practitioner Family; Visit Provider Nurse Practitioner Family
DX: D72.829 Elevated white blood cell count, unspecified (principal)
CPT/HCPCS: 36415; 85025

== ENCOUNTER → 2023-04-25 | Outpatient (CLI) | payer BC, SELFPAY ==
[2023-04-25 12:49] LABS: Cholesterol 233 mg/dL (200); High Density Lipoprotein 71 mg/dL; Thyroid Stim Hormone (TSH) 2.12 uIU/mL (0.358-3.74); Triglycerides 100 mg/dL; Very Low Density Lipoprotein 20 mg/dL (5-40)
== END | disposition home or self-care (01) ==
LOC: BIMLAB 09:15
PROVIDERS: PCP Internal Medicine; Referring Provider Internal Medicine; Visit Provider Internal Medicine
DX: Z13.6 Encounter for screening for cardiovascular disorders (principal); E03.9 Hypothyroidism, unspecified
CPT/HCPCS: 36415; 80061; 84443

== ENCOUNTER → 2024-01-21 | Outpatient (CLI) | payer OTHER, SELFPAY ==
--- NOTE | 2024-01-21 14:56 | BI_ITS ---
MAMMOGRAPHY - BILATERAL SCREENING REASON FOR EXAM: Female, 63 years old. Routine annual screening examination. PERTINENT HISTORY: Sister with breast cancer. Grandmother with breast cancer. Aunt with breast cancer. TECHNIQUE: Digital bilateral breast jose manuel (3D mammographic acquisition) in the CC and MLO projections. 2-D mediolateral oblique (MLO) and craniocaudad (CC) views of both breasts were obtained. CAD: Full Field Digital Mammography with Computer Added Detection was performed. COMPARISON: Comparison is made with prior study December 27, 2022 and December 21, 2021. FINDINGS: Breast Composition: The breasts are heterogeneously dense, which may obscure small masses. There are no dominant masses or suspicious calcifications. No other significant abnormalities are identified. There has been no significant change since the prior study. BI/SCRN MAMM (CAD)W/JOSE MANUEL BILAT IMPRESSION: Stable bilateral screening mammogram. Yearly follow-up mammogram recommended. (A) ASSESSMENT CATEGORY: BIRADS Category 1: Negative. A letter regarding these results will be sent to the patient by the facility within 30 days. Approximately 10% of breast cancers are not detected by mammography. A normal mammogram should not delay biopsy of a clinically suspicious abnormality. [id number] Electronically Signed: Jesus Villela MD at 8:08 EDT ,
== END | disposition home or self-care (01) ==
LOC: OPBI 14:55
PROVIDERS: PCP Internal Medicine; Referring Provider Nurse Practitioner Family; Visit Provider Nurse Practitioner Family
DX: Z12.31 Encounter for screening mammogram for malignant neoplasm of breast (principal)
CPT/HCPCS: 77063; 77067

== ENCOUNTER → 2024-02-12 | Outpatient (CLI) | payer OTHER, SELFPAY ==
[2024-02-12 13:05] LABS: Absolute Lymphocyte Count 0.76 X10^3/uL (0.83-4.51); Absolute Neutrophil Count 4.4 X10^3/uL (2.0-7.7); Basophil# 0.03 X10^3/uL; Basophil% 0.5 % (0-1); Eosinophil# 0.12 X10^3/uL; Eosinophils% 1.9 % (0-5); Hematocrit 39.9 % (37-47); Lymphocyte # 0.76 X10^3/ul (0.83-4.51); Mean Corp Hgb Conc 32.6 g/dL (32-36); Mean Corpuscular Hgb 28.1 pg (27.0-32.0); Mean Corpuscular Volume 86.4 fL (81-99); Mean Platelet Vol. 9.9 fl (6.2-12.0); Monocyte# 1.02 X10^3/uL; Monocyte% 16.1 % (0-10); NRBC Flagged by Analyzer 0 % (0-5); Neutrophil # 4.38 X10^3/uL (2.7-7.7); Neutrophil % 69.2 % (47-70); Platelet Count 270 K/mm3 (150-450); RBC Distribution Width CV 13.5 % (11.6-14.6); RBC Distribution Width SD 42.4 fl (35.1-43.9); Red Blood Count 4.62 M/mm3 (4.2-5.4); White Blood Count 6.3 K/mm3 (4.4-11.0)
[2024-02-12 13:22] LABS: Vitamin B12 767 pg/mL (211-911); Vitamin D,25 Hydroxy 23.6 ng/mL
[2024-02-12 13:25] LABS: Hemoglobin A1c 5.7 % (3.8-5.6)
[2024-02-12 13:39] LABS: ALB/GLOB Ratio 1.1 RATIO (0.9-2.4); AST(SGOT) 27 U/L (15-37); Alanine Aminotransfer ALT/SGPT 51 U/L (13-56); Albumin, Serum 3.7 g/dL (3.2-5.0); Alkaline Phosphatase 111 U/L (45-117); Anion Gap 8 (5-15); BUN 17 mg/dL (7-18); BUN/Creat Ratio 22.5 RATIO (10-20); Chloride 107 mmol/L (98-107); Cholesterol 178 mg/dL (200); Creatinine, Serum 0.75 mg/dL (0.55-1.02); EST Glomerular Filtration Rate 83 mL/min (>60); Est Glom Filt Rate - Afr Amer 100 mL/min (>60); Globulin 3.3 g/dL (2.2-4.2); Glucose 130 mg/dL (74-106); High Density Lipoprotein 64 mg/dL; Potassium 3.7 mmol/L (3.5-5.1); Sodium Level 139 mmol/L (136-145); Thyroid Stim Hormone (TSH) 0.45 uIU/mL (0.358-3.74); Triglycerides 116 mg/dL; Very Low Density Lipoprotein 23 mg/dL (5-40)
== END | disposition home or self-care (01) ==
LOC: VSLAB 09:47
PROVIDERS: PCP Nurse Practitioner Family; Referring Provider Nurse Practitioner Family; Visit Provider Nurse Practitioner Family
DX: Z00.00 Encounter for general adult medical examination without abnormal findings (principal)
CPT/HCPCS: 36415; 80053; 80061; 82306; 82607; 83036; 84443; 85025

== ENCOUNTER → 2024-12-24 | Outpatient (CLI) | payer OTHER, SELFPAY ==
[2024-12-24 16:19] LABS: Absolute Lymphocyte Count 1.62 X10^3/uL (0.83-4.51); Absolute Neutrophil Count 3.5 X10^3/uL (2.0-7.7); Basophil# 0.06 X10^3/uL; Basophil% 0.9 % (0-1); Eosinophil# 0.36 X10^3/uL; Eosinophils% 5.6 % (0-5); Hematocrit 43.1 % (37-47); Hemoglobin 14.1 g/dL (12.0-15.0); Lymphocyte # 1.62 X10^3/ul (0.83-4.51); Lymphocyte % 25.3 % (19-41); Mean Corp Hgb Conc 32.7 g/dL (32-36); Mean Corpuscular Hgb 27.9 pg (27.0-32.0); Mean Corpuscular Volume 85.3 fL (81-99); Mean Platelet Vol. 9.5 fl (6.2-12.0); Monocyte# 0.85 X10^3/uL; Monocyte% 13.3 % (0-10); NRBC Flagged by Analyzer 0 % (0-5); Neutrophil % 54.6 % (47-70); Platelet Count 412 K/mm3 (150-450); RBC Distribution Width CV 13.2 % (11.6-14.6); RBC Distribution Width SD 41.2 fl (35.1-43.9); Red Blood Count 5.05 M/mm3 (4.2-5.4); White Blood Count 6.4 K/mm3 (4.4-11.0)
[2024-12-24 17:38] LABS: ALB/GLOB Ratio 1.5 RATIO (0.9-2.4); AST(SGOT) 20 U/L (<=31); Alanine Aminotransfer ALT/SGPT 31 U/L (<=34); Albumin, Serum 4.4 g/dL (3.4-4.8); Alkaline Phosphatase 111 U/L (35-104); Anion Gap 14 (5-15); BUN 14 mg/dL (4-19); BUN/Creat Ratio 20.1 RATIO (10-20); Calcium,Total 9.8 mg/dL (7.6-11.0); Carbon Dioxide 23.2 mmol/L (21.0-32.0); Chloride 101 mmol/L (98-108); Cholesterol 256 mg/dL (<=200); Creatinine, Serum 0.72 mg/dL (0.70-1.20); EST Glomerular Filtration Rate 94 (>60); Glucose 96 mg/dL (70-99); High Density Lipoprotein 67 mg/dL; Low Density Lipoprotein Calc. 150 mg/dL; Potassium 4.2 mmol/L (3.3-5.1); Protein, Total 7.4 g/dL (5.9-8.4); Sodium Level 139 mmol/L (133-145); Total Bilirubin 0.24 mg/dL (0.00-1.30); Triglycerides 196 mg/dL; Very Low Density Lipoprotein 39 mg/dL (5-40)
[2024-12-24 17:39] LABS: Thyroid Stim Hormone (TSH) 0.935 uIU/mL (0.300-4.200); Vitamin B12 576 pg/mL (180-914); Vitamin D,25 Hydroxy 27.4 ng/mL (30-100)
[2024-12-24 19:10] LABS: Hemoglobin A1c 6.2 % (<=5.6)
== END | disposition home or self-care (01) ==
LOC: VSLAB 14:22
PROVIDERS: PCP Nurse Practitioner Family; Visit Provider Nurse Practitioner Family
DX: I10 Essential (primary) hypertension (principal)
CPT/HCPCS: 36415; 80053; 80061; 82306; 82607; 83036; 84443; 85025

== ENCOUNTER → 2025-01-13 | Outpatient (CLI) | payer OTHER, SELFPAY ==
[2025-01-13 17:39] LABS: Anion Gap 11 (5-15); BUN 21 mg/dL (4-19); BUN/Creat Ratio 26.6 RATIO (10-20); Calcium,Total 9.8 mg/dL (7.6-11.0); Carbon Dioxide 25.5 mmol/L (21.0-32.0); Chloride 103 mmol/L (98-108); Creatinine, Serum 0.77 mg/dL (0.70-1.20); EST Glomerular Filtration Rate 86 (>60); Glucose 113 mg/dL (70-99); Potassium 4.1 mmol/L (3.3-5.1); Sodium Level 139 mmol/L (133-145)
== END | disposition home or self-care (01) ==
LOC: VSLAB 12:00
DX: I10 Essential (primary) hypertension (principal)
CPT/HCPCS: 36415; 80048

== ENCOUNTER → 2025-01-26 | Outpatient (CLI) | payer OTHER, SELFPAY ==
--- NOTE | 2025-01-26 12:56 | BD_ITS ---
PROCEDURE: DEXA BONE DENSITY STUDY 01/26/2025 REASON FOR EXAM: F, age 64 y/o . TECHNIQUE: DEXA BONE DENSITY STUDY COMPARISON: None FINDINGS: BMD and T-SCORES Lumbar spine: 1.067 g/cm2, T-score 0.3 Levels: L1 and L4 (there are postoperative changes at L2 and L3) Left femoral neck: 0.656 g/cm2, T-score -1.7 Femoral neck comparison data not recommended for monitoring change. Left total hip: 0.821 g/cm2, T-score -1.0 Right femoral neck: 0.653 g/cm2, T-score -1.8 Femoral neck comparison data not recommended for monitoring change. Right total hip: 0.827 g/cm2, T-score -0.9 The World Health Organization has defined the following categories based on bone density: Normal bone density: T-score equal to or greater than -1.0 Osteopenia: T-score between -1.0 and -2.5 Osteoporosis: T-score equal to or less than -2.5 FRAX (or Comparable) Fracture Risk Assessment: 10 Year Probability of Fracture: Major Osteoporotic Fracture: 15% Hip Fracture: 1.9% (Note: FRAX is not to be reported in setting of normal range bone density, osteoporosis on DEXA, known history of osteoporosis, prior osteoporotic hip or vertebral fracture, or for any patient undergoing pharmacological treatment for bone loss.) The National Osteoporosis Foundation (NOF) recommends pharmacological treatment for patients with a FRAX 10-year risk of 3% or higher for a hip fracture, or 20% or higher for a major osteoporotic fracture, to prevent osteoporosis and reduce fracture risk. The patient does not meet the pharmacological treatment recommendations for prevention of osteoporosis. BD/Dexa Bone Density Study IMPRESSION: OSTEOPENIA. Reading Location: [id number]
--- NOTE | 2025-01-26 13:30 | BI_ITS ---
EXAM: SCRN MAMM (CAD)W/JOSE MANUEL BILAT DATE: 01/26/2025 CLINICAL HISTORY: F, Age 64 y/o , SCREENING FOR BREAST CANCER TECHNIQUE: SCRN MAMM (CAD)W/JOSE MANUEL BILAT COMPARISON: Prior exam(s) were compared FINDINGS: TISSUE DENSITY: The breast tissue is heterogeneously dense, which may obscure small masses. Bilateral Breast Mammographic Findings: Right breast: There is a mass in the upper-outer right breast posterior depth. Left breast: No suspicious masses, calcifications or other abnormalities are identified. BI/SCRN MAMM (CAD)W/JOSE MANUEL BILAT IMPRESSION: Additional diagnostic imaging is recommended of the right breast with diagnosti c right breast mammogram and ultrasound. No mammographic evidence of malignancy in the left breast OVERALL FINAL ASSESSMENT BI-RADS 0: INCOMPLETE - NEED ADDITIONAL IMAGING EVALUATION. RECOMMENDATION: Ultrasound Recommended A letter with findings and recommendations will be mailed to the patient. Reading Location: [facility]
== END | disposition home or self-care (01) ==
LOC: OPBD 12:54
DX: Z12.31 Encounter for screening mammogram for malignant neoplasm of breast (principal); Z13.820 Encounter for screening for osteoporosis; M85.80 Other specified disorders of bone density and structure, unspecified site
CPT/HCPCS: 77063; 77067; 77080

== ENCOUNTER → 2025-02-17 | Outpatient (CLI) | payer OTHER, SELFPAY ==
--- NOTE | 2025-02-17 14:02 | BI_ITS ---
EXAM: DIAG MAMM W/CAD, UNILAT; RT BRST UNILAT JOSE MANUEL ADD-ON; BREAST LIMITED UNILATERAL 02/17/2025 CLINICAL HISTORY: 64-year-old female presents for follow-up examination of the right breast findings seen on examination of 01/26/2025. Family history of breast cancer in maternal grandmother, maternal aunt and sister. TECHNIQUE: DIAG MAMM W/CAD, UNILAT; RT BRST UNILAT JOSE MANUEL ADD-ON; BREAST LIMITED UNILATERAL. COMPARISON: Prior exam(s) dated 01/26/2025, 01/21/2024, 12/27/2022. FINDINGS: MAMMOGRAM: TISSUE DENSITY: The breasts are heterogeneously dense, which may obscure small masses. Unilateral Right Breast Mammographic Findings: Follow-up examination performed for the right breast mass seen on examination of 01/26/2025. On the present examination, the mass in the upper-outer right breast at posterior depth partially effaces. This likely represents benign overlapping fibroglandular tissues. ULTRASOUND: Ultrasound performed of the superior right breast demonstrates no sonographic correlate for the mammographic finding. BI/Rt Brst Unilat Jose Manuel Add-On IMPRESSION: The mass in the upper-outer right breast likely represents benign overlapping d ense fibroglandular tissues. Otherwise, there are no suspicious findings in the right breast. OVERALL FINAL ASSESSMENT BI-RADS 2: BENIGN RECOMMENDATION: Routine annual follow-up in 1 Year A letter with findings and recommendations will be mailed to the patient. Reading Location: [id number]
--- NOTE | 2025-02-17 14:02 | BI_ITS ---
EXAM: DIAG MAMM W/CAD, UNILAT; RT BRST UNILAT JOSE MANUEL ADD-ON; BREAST LIMITED UNILATERAL 02/17/2025 CLINICAL HISTORY: 64-year-old female presents for follow-up examination of the right breast findings seen on examination of 01/26/2025. Family history of breast cancer in maternal grandmother, maternal aunt and sister. TECHNIQUE: DIAG MAMM W/CAD, UNILAT; RT BRST UNILAT JOSE MANUEL ADD-ON; BREAST LIMITED UNILATERAL. COMPARISON: Prior exam(s) dated 01/26/2025, 01/21/2024, 12/27/2022. FINDINGS: MAMMOGRAM: TISSUE DENSITY: The breasts are heterogeneously dense, which may obscure small masses. Unilateral Right Breast Mammographic Findings: Follow-up examination performed for the right breast mass seen on examination of 01/26/2025. On the present examination, the mass in the upper-outer right breast at posterior depth partially effaces. This likely represents benign overlapping fibroglandular tissues. ULTRASOUND: Ultrasound performed of the superior right breast demonstrates no sonographic correlate for the mammographic finding. BI/DIAG MAMM W/CAD, UNILAT IMPRESSION: The mass in the upper-outer right breast likely represents benign overlapping d ense fibroglandular tissues. Otherwise, there are no suspicious findings in the right breast. OVERALL FINAL ASSESSMENT BI-RADS 2: BENIGN RECOMMENDATION: Routine annual follow-up in 1 Year A letter with findings and recommendations will be mailed to the patient. Reading Location: [id number]
== END | disposition home or self-care (01) ==
PROVIDERS: Referring Provider Nurse Practitioner Women's Health; Visit Provider Nurse Practitioner Women's Health
DX: N63.11 Unspecified lump in the right breast, upper outer quadrant (principal)
CPT/HCPCS: 76642; 77061; 77065; G0279

== ENCOUNTER → 2025-03-17 | Outpatient (CLI) | payer OTHER, SELFPAY ==
[2025-03-17 17:14] LABS: AST(SGOT) 16 U/L (<=31); Alanine Aminotransfer ALT/SGPT 20 U/L (<=34); Albumin, Serum 4.5 g/dL (3.4-4.8); Alkaline Phosphatase 100 U/L (35-104); Anion Gap 14 (5-15); BUN 19 mg/dL (4-19); BUN/Creat Ratio 21.5 RATIO (10-20); Calcium,Total 10.2 mg/dL (7.6-11.0); Carbon Dioxide 21.4 mmol/L (21.0-32.0); Chloride 100 mmol/L (98-108); Globulin 2.9 g/dL (2.2-4.2); Glucose 132 mg/dL (70-99); Magnesium 2.2 mg/dL (1.5-2.2); Potassium 4.5 mmol/L (3.3-5.1)
== END | disposition home or self-care (01) ==
LOC: VSLAB 15:46
PROVIDERS: Visit Provider Nurse Practitioner Family
DX: I10 Essential (primary) hypertension (principal)
CPT/HCPCS: 36415; 80053; 83735